=== PATIENT | male | born 1960 | race Caucasian/White ===

== ENCOUNTER 2019-05-09 16:26 | Emergency (ER) | payer OTHER ==
[~2019-05-09] VITALS: Ht 182.9 cm; Wt 104.3 kg
[~2019-05-09 16:26] MED LIST: ACYCLOVIR 400400 M1 OR; ASPIRIN325 OR; AVELOX 400 MG400 MG OR; CARDIZEM OR; COUMADIN 5 MG TA5 M1 OR; COUMADIN7.5 MG PO; JANTOVEN5 MG PO; LOPRESSOR100 MG OR; SIMVASTATIN40 MG PO; XARELTO10 MG PO
[2019-05-09 17:05] LABS: HEMATOCRIT 43.5 % (42.0-52.0); HEMOGLOBIN 15.1 gm/dL (14.0-18.0); MCHC 34.7 g/dL (28.0-37.0); MCV 89.4 fL (80.0-100.0); MPV 9.3 fl. (7.2-11.1); NUCLEATED RBCS 0 /100WBC; PLATELET COUNT* 146 thou/uL (150-400); RBC 4.87 mil/uL (4.50-6.00); RDW-CV 13.3 % (10.5-14.5); WBC 5.5 thou/uL (4.0-11.0)
[2019-05-09 17:15] LABS: CALCIUM 8.9 mg/dL (8.5-10.1); CREATININE 1.1 mg/dL (0.6-1.3); POTASSIUM 3.9 mmol/L (3.5-5.1)
[2019-05-09 17:17] LABS: APTT 28.2 Seconds (25.0-31.3); INR 1.2; PROTIME 12.6 Seconds (9.20-11.50)
[2019-05-09 17:29] LABS: ALBUMIN 3.7 g/dL (3.4-5.0); CK-MB MASS 1.5 ng/mL (<0.5-3.6); MAGNESIUM 1.7 mg/dL (1.8-2.4); TOTAL PROTEIN 6.8 g/dL (6.4-8.2)
[2019-05-09 17:38] LABS: ABSOLUTE EOSINOPHILS 0.1 thou/uL (0.0-0.7); ABSOLUTE LYMPHOCYTES 1.9 thou/uL (0.8-5.3); ABSOLUTE MONOCYTES 0.4 thou/uL (0.0-1.2); ABSOLUTE NEUTROPHILS 3.1 thou/uL (1.6-8.1); ATYPICAL LYMPHS 3 %; PLATELET ESTIMATE ADEQUATE
[2019-05-09 17:54] VITALS: BP 158/108
--- NOTE | 2019-05-10 07:50 | EKG ---
[place] [address] ELECTROCARDIOGRAM REPORT Name: JAELYN KILPATRICK [id number] Admission: 05/09/19 Attend Phys: Discharge: 05/09/19 Date of : 58 Report #: [id number] THIS REPORT FOR: //name// [facility] ED Test Date: 2019-05-09 Test Time: 17:25:46 Pat Name: JAELYN KILPATRICK Department: Room: Gender: M [employer]: : 1960 Requested By: Dinesh Yo Order Number: [id number] MD: Neel Verdugo Measurements Intervals [place] Rate: 91 P: [place]: QRS: 11 QRSD: 111 T: 26 QT: 398 QTc: 490 Interpretive Statements Atrial fibrillation Borderline low voltage, extremity leads Baseline wander in lead(s) II,III,aVF Compared to ECG 10/24/2010 09:44:51 ST (T wave) deviation no longer present Electronically Signed On 05-10-2019 7:49:56 YARDAGE ESTIMATOR by Neel Verdugo [email or web address] <ELECTRONICALLY SIGNED> By: Neel Verdugo MD, [facility] 05/10/19 0749 1725 1725 Neel Verdugo MD, [facility] /EPI
== END 2019-05-09 17:54 | disposition home or self-care (01) ==
LOC: M.ERS 16:26
PROVIDERS: Family Medicine
DX: R53.1 Weakness (principal); J45.909 Unspecified asthma, uncomplicated; I48.91 Unspecified atrial fibrillation; Z86.73 Personal history of transient ischemic attack (TIA), and cerebral infarction without residual deficits

== ENCOUNTER 2020-10-17 16:25 | Emergency (ER) | payer OTHER ==
[~2020-10-17] VITALS: Ht 188 cm; Wt 131.5 kg
== END 2020-10-17 17:20 | disposition home or self-care (01) ==
LOC: M.ERS 16:25
DX: R04.0 Epistaxis (principal); I48.91 Unspecified atrial fibrillation; J45.909 Unspecified asthma, uncomplicated; Z86.73 Personal history of transient ischemic attack (TIA), and cerebral infarction without residual deficits; Z79.899 Other long term (current) drug therapy